=== PATIENT | female | born 1990 ===

== ENCOUNTER 2020-08-31 05:28 | Inpatient (IN) | payer BC ==
[2020-08-31] VITALS (18 sets, daily range): BP systolic 103–140; BP diastolic 56–81; PULSE 56–75; TEMP 97.8–98.9
[~2020-08-31] VITALS: Ht 170.2 cm; Wt 108.6 kg
[2020-08-31 06:11] LABS: BASO % 0.2 % (0.0-2.0); EOS # 0.1 (0.0-0.7); EOS % 1.2 % (0-4.0); GRAN # 7.6 (1.4-6.5); GRAN % 72.1 % (42.2-75.2); HEMATOCRIT 37.9 % (37.0-47.0); HEMOGLOBIN 12.7 g/dl (12.5-16.0); LYMPH # 2.1 (1.2-3.4); LYMPH % 20.2 % (20.0-51.0); MEAN CELL VOLUME 93 fl (80.0-100.0); MEAN CORPUSCULAR HEMOGLOBIN 31 pg (27.0-31.0); MEAN CORPUSCULAR HGB CONC 34 g/dl (33.0-37.0); MEAN PLATELET VOLUME 11.8 fl (7.4-10.4); MONO # 0.6 (0.1-0.6); MONO % 5.3 % (1.7-9.3); PLATELET COUNT 162 K/mm3 (130-400); RED BLOOD COUNT 4.09 M/mm3 (4.10-5.30)
--- NOTE | 2020-08-31 06:30 | NUR ---
0630- Report from Maksim Lubin RN. This RN to bedside. EFM noted to be on and tracing well. Patient reports normal movement, denies any LOF, VB, or regular contractions. Assessment completed.
[2020-08-31] MEDS ORDERED: 00186-0370-20 IH (06:31)
[2020-08-31] MEDS ORDERED: PROAIR HFA0.09 MG/AC IH (06:31)
[2020-08-31] MEDS ORDERED: PRENATAL TABLET PO (06:32)
--- NOTE | 2020-08-31 08:20 | NUR ---
Patient to PACU via bed. Report from Tea Vanegas CRNA. Monitors applied. IVF infusing well. Bo to AMMY. Assessment completed.
[2020-09-01 02:07] VITALS: BP 121/66; PULSE 66; TEMP 98.3
[2020-09-01 07:00] VITALS: BP 115/65; PULSE 59; TEMP 97.7
--- NOTE | 2020-09-01 09:05 | NUR ---
Initial visit; Patient thanked Sifting Operator for offering congratulations and God's blessings for the of her son. Sifting Operator thanked patient for choosing our hospital.
[2020-09-01 17:30] VITALS: BP 119/62; PULSE 58; TEMP 98
[2020-09-01 21:30] VITALS: BP 140/64; PULSE 69; TEMP 98.5
[2020-09-02 01:30] VITALS: BP 121/62; PULSE 68; TEMP 98
[2020-09-02] MEDS ORDERED: MOTRIN 800800 MG/TAB PO (08:05)
[2020-09-02] MEDS ORDERED: PERCOCET 325 MG1 TA2 PO (08:05)
[2020-09-02 08:30] VITALS: BP 120/68; PULSE 71; TEMP 97.8
== END 2020-09-02 12:20 | disposition home or self-care (01) | DRG 788 ==
LOC: OB 05:28
PROVIDERS: ADMIT Obstetrics & Gynecology
PROC: 10D00Z1 Extraction of Products of Conception, Low, Open Approach (ICD-10-PCS; principal; 2020-08-31)
DX: O34.211 Maternal care for low transverse scar from previous cesarean delivery (principal); Z3A.39 39 weeks gestation of pregnancy; O99.52 Diseases of the respiratory system complicating childbirth; J45.909 Unspecified asthma, uncomplicated; Z37.0 Single live birth
CPT/HCPCS: J0690; J1885; J2405; J2590; J7120